=== PATIENT | male | born 1965 | race Two or more races ===

== ENCOUNTER 2019-09-09 11:56 | Outpatient (CLI) | payer BC ==
--- NOTE | 2019-09-09 13:05 | Diagnostic Imaging Report ---
Indication: Cough Technique: 2 views of the chest Comparison: 01/07/2014 Findings: Nodular opacity at the left lung base corresponds to nipple shadow demonstrated by prior nipple marker images. Lungs and pleural spaces are otherwise clear. The heart size is normal. The bones are unremarkable. No significant interim change. Impression: Negative
== END 2019-09-09 13:56 | disposition home or self-care (01) ==
LOC: RAD 11:56
DX: R05 Cough (principal)
CPT/HCPCS: 71046